=== PATIENT | male | born 1990 | race Caucasian/White ===

== ENCOUNTER 2020-06-27 14:27 | Emergency (ER) | payer OTHER ==
[2020-06-27 14:34] VITALS: PULSE 79; TEMP 98.4; BMI 34.4
[2020-06-27] MEDS ORDERED: ACETAMINOPHEN 325 MG TABLET (FP) PO ONE (15:24)
[2020-06-27] MEDS ORDERED: ACETAMINOPHEN 325 MG TABLET (FP) ONE (17:15)
[2020-06-27 18:26] VITALS: BP 142/80
== END 2020-06-27 18:26 | disposition home or self-care (01) ==
LOC: JER 14:27
DX: S09.90XA Unspecified injury of head, initial encounter (principal); S89.92XA Unspecified injury of left lower leg, initial encounter; V49.40XA Driver injured in collision with unspecified motor vehicles in traffic accident, initial encounter
CPT/HCPCS: 70450-TC; 73562-TC-LT-FY; 99284-25